=== PATIENT | male | born 1995 | race Native Hawaiian/Other Pacific Islander ===

== ENCOUNTER 2025-06-07 13:34 | Emergency (ER) | payer BC ==
[~2025-06-07] VITALS: Ht 175.3 cm; Wt 108.0 kg
[2025-06-07 13:43] VITALS: O2SAT 99
[2025-06-07 14:19] LABS: APPEARANCE,URINE CLEAR (CLEAR); GLUCOSE, URINE (UA) NEGATIVE (NEGATIVE); LEUKOCYTE ESTERASE ,URINE NEGATIVE (NEGATIVE); NITRATE,URINE NEGATIVE (NEGATIVE); OCCULT BLOOD,URINE TRACE (NEGATIVE); SPECIFIC GRAVITIY, URINE 1.030 (1.003-1.030)
[2025-06-07 14:26] LABS: SULFOSALICYLIC ACID,URINE 2+ (Negative)
[2025-06-07 14:39] LABS: PLATELET COUNT (AUTO) 284 K/uL (150-450); RED BLOOD CELL COUNT(AUTO) 5.37 MIL/uL (4.50-5.90); RED CELL DISTRIBUTION WIDTH 12.9 % (11.5-14.5); WHITE BLOOD COUNT (AUTO) 10.5 K/uL (4.5-11.0)
[2025-06-07 14:53] LABS: CALCIUM, TOTAL 9.6 mg/dL (8.8-10.5); CREATININE 0.94 mg/dL (0.60-1.30); GLOMERULAR FILTR. RATE CALC > 60 mL/min (>60); GLUCOSE,RANDOM 98 mg/dL (70-110); SODIUM SERUM 140 mmol/L (136-145); UREA NITROGEN, BLOOD 13 mg/dL (7-18)
[2025-06-07 14:55] LABS: ASPARTATE AMINOTRANSFERASE 24.0 U/L (15-37); TOTAL PROTEIN, SERUM 8.3 g/dL (6.4-8.2)
[2025-06-07 15:43] VITALS: TEMP 98.2
[2025-06-07] MEDS ORDERED: 0.9% SODIUM CHLORIDE 10 ML SYRINGE IVP ONE (15:58)
[2025-06-07] MEDS ORDERED: IOHEXOL 350 MG/ML 100 ML VIAL ONE (15:58)
[2025-06-07] MEDS ORDERED: SODIUM CHLORIDE 0.9% 100 ML ONE (15:58)
[2025-06-07] MEDS: SODIUM CHLORIDE 0.9% 1,000 ML IV ONE (16:23)
[2025-06-07 18:58] VITALS: BP 148/86; PULSE 96; RESP 15
== END 2025-06-07 19:21 | disposition home or self-care (01) ==
LOC: EMS 13:47
DX: R80.8 Other proteinuria (principal)
CPT/HCPCS: 99285; 74177; 96360; 80048; 80076; 81001; 83690; 85025; 36415; Q9967; J7030; J7050; 81002

== ENCOUNTER 2025-07-23 15:44 | Emergency (ER) | payer BC ==
[~2025-07-23] VITALS: Ht 175.3 cm; Wt 113.6 kg
[2025-07-23 15:46] VITALS: TEMP 98.2
[2025-07-23 16:52] VITALS: BP 125/82; PULSE 87; RESP 16; O2SAT 100
[2025-07-23] MEDS: PERTUSS(ACELL),DIPH,TET/PF 0.5 ML SYRINGE [ADULT] IM. ONE (17:22)
[2025-07-23] MEDS ORDERED: CEPH-558 PO (17:24)
[2025-07-23] MEDS: ONDANSETRON 4 MG TABLET PO ONE (17:37)
[2025-07-23] MEDS ORDERED: DOXY-354 PO (18:10)
[2025-07-23] MEDS ORDERED: HYDR-4062 PO (18:39)
== END 2025-07-23 18:53 | disposition home or self-care (01) ==
LOC: EMS 16:31
DX: S91.332A Puncture wound without foreign body, left foot, initial encounter (principal); W22.8XXA Striking against or struck by other objects, initial encounter; Y93.89 Activity, other specified; Y92.89 Other specified places as the place of occurrence of the external cause; Y99.8 Other external cause status
CPT/HCPCS: 99284; 73630; 90715; 90471; 96372; J1171; Q0162

== ENCOUNTER 2025-07-26 09:03 | Emergency (ER) | payer BC ==
[~2025-07-26] VITALS: Ht 175.3 cm; Wt 113.0 kg
[~2025-07-26 09:03] MED LIST: CEPH-558 PO; DOXY-354 PO; HYDR-4062 PO
[2025-07-26 09:15] VITALS: BP 139/88; PULSE 96; RESP 20; TEMP 98.2; O2SAT 98
[2025-07-26] MEDS ORDERED: ACET-3385 PO (09:48)
[2025-07-26] MEDS ORDERED: OXYC5 PO (09:48)
[2025-07-26] MEDS ORDERED: IBUP-1492 PO (09:48)
[2025-07-26] MEDS: KETOROLAC TROMETHAMINE 30 MG/ML VIAL IM ONE (09:52)
[2025-07-26] MEDS: BACITRACIN 28 GM OINTMENT TP ONE (09:53)
[2025-07-26] MEDS: OxyCODONE HCL 5 MG IR TABLET PO ONE (09:53)
== END 2025-07-26 10:05 | disposition home or self-care (01) ==
LOC: EMS 09:41
DX: Z48.00 Encounter for change or removal of nonsurgical wound dressing (principal)
CPT/HCPCS: 99283; 96372; J1885

== ENCOUNTER 2025-07-30 08:52 | Emergency (ER) | payer BC ==
[~2025-07-30] VITALS: Ht 180.3 cm; Wt 113.0 kg
[~2025-07-30 08:52] MED LIST changes: +ACET-3385 PO; +IBUP-1492 PO; +OXYC5 PO
[2025-07-30 09:00] VITALS: TEMP 98.1
[2025-07-30 09:25] VITALS: BP 134/79; PULSE 84; RESP 16; O2SAT 100
== END 2025-07-30 09:59 | disposition home or self-care (01) ==
LOC: EMS 08:52
DX: S91.339A Puncture wound without foreign body, unspecified foot, initial encounter (principal); Z79.899 Other long term (current) drug therapy; X58.XXXA Exposure to other specified factors, initial encounter; Y93.89 Activity, other specified; Y92.89 Other specified places as the place of occurrence of the external cause; Y99.8 Other external cause status
CPT/HCPCS: 99282; Z7502